=== PATIENT | female | born 1975 | race Caucasian/White ===

== ENCOUNTER 2024-08-01 13:55 | Emergency (ER) | payer MEDICAID, SELFPAY ==
[2024-08-01 13:57] VITALS: BP 125/79; PULSE 104; RESP 18; TEMP 36.2; O2SAT 98; BMI 21.8
[2024-08-01 14:18] LABS: Absolute Lymphocyte Count 2.65 X10^3/uL (0.83-4.51); Absolute Neutrophil Count 4.5 X10^3/uL (2.0-7.7); Basophil# 0.05 X10^3/uL; Basophil% 0.6 % (0-1); Eosinophil# 0.08 X10^3/uL; Hematocrit 35.5 % (37-47); Hemoglobin 13.1 g/dL (12.0-15.0); Lymphocyte # 2.65 X10^3/ul (0.83-4.51); Lymphocyte % 34.3 % (19-41); Mean Corp Hgb Conc 36.9 g/dL (32-36); Mean Corpuscular Volume 92.2 fL (81-99); Mean Platelet Vol. 9.3 fl (6.2-12.0); Monocyte# 0.45 X10^3/uL; Monocyte% 5.8 % (0-10); NRBC Flagged by Analyzer 0 % (0-5); Neutrophil # 4.45 X10^3/uL (2.7-7.7); Neutrophil % 57.7 % (47-70); Platelet Count 298 K/mm3 (150-450); RBC Distribution Width CV 12.7 % (11.6-14.6); Red Blood Count 3.85 M/mm3 (4.2-5.4); White Blood Count 7.7 K/mm3 (4.4-11.0)
[2024-08-01 14:23] LABS: Mucous, Urine 0 SEEN /hpf (<or=2+); Red Blood Cells-Urine 0 SEEN /hpf (0-5); White Blood Cells 0 SEEN /hpf (0-5)
[2024-08-01 14:25] LABS: Internal QC Validated? YES +Cl - CLEAR BKGD
[2024-08-01 14:26] LABS: Pregnancy, Serum, hCG Quali. NEGATIVE Negative; Record Kit Lot#, Serum Preg. 947241
[2024-08-01 14:30] LABS: Color, Urine Yellow (Yellow); Glucose, Dipstick 1000 mg/dl (Normal); Ketone-Dipstick Negative (Negative); Leukocyte Esterase-Dipstick Negative /ul (Negative); Nitrite-Dipstick Negative (Negative); Occult Blood-Urine Negative /ul (Negative); Protein-Dipstick 30 mg/dl (Negative); Specific Gravity, Urine 1.015 (1.002-1.030); Urine Bilirubin Dipstick Negative (Negative); Urine Clarity Sl. Cloudy (Clear); Urine Urobilinogen Normal (Normal); Urine pH 6.5 (5.0 - 8.0)
[2024-08-01 14:43] LABS: ALB/GLOB Ratio 1.4 RATIO (0.9-2.4); AST(SGOT) 152 U/L (<=31); Alanine Aminotransfer ALT/SGPT 163 U/L (<=34); Albumin, Serum 4.2 g/dL (3.5-5.0); Alkaline Phosphatase 84 U/L (35-104); Anion Gap 12 (5-15); BUN 10 mg/dL (4-19); BUN/Creat Ratio 8.3 RATIO (10-20); Calcium,Total 8.6 mg/dL (7.6-11.0); Carbon Dioxide 25.9 mmol/L (21.0-32.0); Chloride 92 mmol/L (98-108); Creatinine, Serum 1.18 mg/dL (0.70-1.20); EST Glomerular Filtration Rate 57 (>60); Estimated Creatinine Clearance 53.03 ml/min (50-250); Globulin 2.9 g/dL (2.2-4.2); Glucose 430 mg/dL (70-99); Potassium 3.9 mmol/L (3.3-5.1); Protein, Total 7.1 g/dL (5.9-8.4); Sodium Level 130 mmol/L (133-145); Total Bilirubin 0.57 mg/dL (0.00-1.30)
--- NOTE | 2024-08-01 14:53 | EKG12_ITS ---
Test Reason : Blood Pressure : */* mmHG Vent. Rate : 78 BPM Atrial Rate : 78 BPM P-R Int : 196 ms QRS Dur : 86 ms QT Int : 388 ms P-R-T Axes : 64 144 80 degrees QTcB Int : 442 ms Normal sinus rhythm Right axis deviation Pulmonary disease pattern Septal infarct , age undetermined Abnormal ECG Confirmed by NANCY WHITFIELD, IRVING ([id number]), field map editor BETSEY BANKS ([id number]) on 08/06/2024 6:16:48 AM Referred By: TB Confirmed By: IRVING CRUZ MD
--- NOTE | 2024-08-01 14:53 | CT_ITS ---
PROCEDURE: ABDOMEN/PELVIS W IV CONT ONLY 08/01/2024 REASON FOR EXAM: LEFT FLANK PAIN TECHNIQUE: Abdomen and pelvis CT with intravenous contrast. Coronal and Sagittal reconstruction series were provided. CONTRAST: Isovue 370 VOLUME: 75 mL. One or more dose reduction techniques were used (e.g., Automated exposure control, adjustment of the mA and/or kV according to patient size, use of iterative reconstruction technique. RADIATION DOSE SUMMARY: CTDlvol: 13.30+ 9.42 mGy DLP: 467.97 mGycm COMPARISON: None. FINDINGS: The peripheral soft tissues are unremarkable. No acute osseous abnormalities. Normal caliber abdominal aorta. No suspicious lymphadenopathy. Hepatic cysts. The gallbladder, pancreas, spleen, and adrenals are unremarkable. Right kidney 19 mm and 13 mm hypodense indeterminate lesions. Left kidney upper pole simple cyst. Additional subcentimeter lesions which are too small to characterize. Concentric urinary bladder wall thickening. Normal caliber large and small bowel. Long segment sigmoid colon wall thickening suspicious for colitis. CT/Abdomen/Pelvis W IV Cont ONLY IMPRESSION: Long segment sigmoid colon wall thickening suspicious for colitis. Concentric urinary bladder wall thickening which may be due to detrusor muscle hypertrophy or cystitis. Correlate with urinalysis. Indeterminate right kidney lesions. Further characterization with nonemergent renal mass protocol CT or MRI is recommended. Reading Location: [place] [address]
--- NOTE | 2024-08-01 14:54 | EX.ED.DYSGE1 ---
HPI History of Present Illness Chief Complaint: Flank Pain Narrative Narrative: Patient is a 49-year-old female with past medical history of type 1 diabetes, thyroid cancer status post radiation therapy who presents to the emergency department with chief complaint of left flank pain. Patient states I have had kidney issues since being a child. Patient denies any history of kidney stones or any trauma to her back. States that she is been urinating normally for herself and having normal bowel movements. Patient states that she has been trying cranberry juice, [id number] medications and her pain was not improving therefore she came here for further evaluation management. She states that her pain is a 10 out of 10. Patient states that she does smoke but denies any history of IV drug use denies alcohol use. [facility] Medical History (Updated 08/01/24 @ 17:[address] Naseem Pandya, ) Diabetes Home Medications ?Medication ?Instructions ?Recorded ?Last Taken ?Type cephalexin 500 mg capsule 500 mg PO BID #10 caps 08/01/24 Unknown Rx dicyclomine 20 mg tablet 20 mg PO TID #20 tabs 08/01/24 Unknown Rx ondansetron 4 mg disintegrating 4 mg PO Q6H PRN nausea and 08/01/24 Unknown Rx tablet vomiting #20 tabs Allergy/AdvReac Type Severity Reaction Status Date / Time diphenhydramine (From Allergy Anaphylaxis Verified 08/01/24 13:57 Benadryl) Opioids - Morphine Analogues Allergy Rash Verified 08/01/24 13:57 Social History (Updated 08/01/24 @ 15:15 by Theresa Gilliam) current occupational status: unemployed Smoking Status: Current some day smoker tobacco type: cigarettes ROS ROS ED ROS Narrative Constitutional: Denies any fevers, chills, headaches, lightness, dizziness Cardiovascular: Denies chest pain or palpitations Respiratory: Denies cough or wheezing shortness of breath Abdomen: Denies abdominal pain nausea vomiting diarrhea : Denies painful urination or hematuria Neurological: Denies any numbness, wheeze, tingling Musculoskeletal: Complains of left-sided back pain as noted above Skin: Denies any new rashes or lesions EXAM Physical Exam Narrative Exam Narrative: General: Patient was lying in bed rest comfortably did not appear to be acute distress Head: Atraumatic, normocephalic Eyes: PERRL bilaterally, EOMI bilateral, no conjunctival injection noted Neck: Soft and supple, trach midline Cardiovascular: Patient tachycardic with regular rhythm Respiratory: Clear to auscultation bilaterally Abdomen: Soft, nondistended, nontender to palpation Musculoskeletal: Left CVA tenderness on exam, nontender to palpation midline of thoracic lumbar spine Extremities: +5/5 strength noted in the bilateral upper and lower extremities, radial pulses +2/4 in the bilateral extremities Neurological: Patient following commands knew that she was at [facility] year is 2024 Skin: Warm, dry, intact no rashes or lesions noted Const Vital Signs: 08/01/24 13:57 08/01/24 15:55 Temperature 97.2 F L Temperature Source Temporal Pulse Rate 104 H 90 Respiratory Rate 18 13 Blood Pressure 125/79 H Blood Pressure Mean 94 Pulse Ox 98 100 Oxygen Delivery Method Room Air MDM MDM MDM Narrative Medical decision making narrative: Patient is a 49-year-old female who presents to the emergency department chief complaint of left flank pain. On the differential diagnosis includes but not limited to UTI, pyelonephritis, ureterolithiasis, AAA. Once workup is obtained reviewed she will be reevaluated. Patient be given IV fluids, Zofran and Toradol. Patient CBC reviewed showed no evidence leukocytosis white blood count normal at 7.7, hemoglobin 13.1, platelet count normal at 298. Patient sodium is 130, potassium normal 3.9, creatinine normal at 1.18. Patient's anion gap normal at 12, glucose was elevated to 430 will give her subcutaneous insulin prior to discharge, AST and ALT were 152 and 163 respectively she was advised to have her blood work repeated in the outpatient setting. Patient's is negative, glucose in her urine was 1000, protein at 30 no ketones noted, negative nitrites negative leukocyte esterase, no white cells seen 2+ bacteria she is not having urinary symptoms therefore this sent for culture. Patient CT abdomen pelvis with IV contrast reviewed showed a long segment sigmoid colon wall thickening which may be secondary to colitis. Concentric urinary bladder wall thickening which may be due to detrusor muscle hypertrophy or cystitis. correlate with urinalysis. Given 2+ bacteria in her urine with CT findings will give a gram of Rocephin and place her on Keflex. She was advised to follow-up on urine culture. Indeterminate right kidney lesion further characterization with nonemergent renal mass protocol CT or MRI recommended. Patient is given a hard copy of this results was advised to take this to her doctor that she will be referred to. Discussed results with the patient she is feeling better she would like to go home at this point time. She states that she is on diabetic medications and she has plenty of these medications and has been taking them as prescribed. She was advised to continue these medications as prescribed. She is encouraged return with worsening symptoms or concerns. All question concerns answered she was discharged home in stable condition. She was requesting a dose pain medication before she left therefore she will be given another 15 mg of Toradol. Lab Data Labs: Laboratory Results - last 24 hr 08/01/24 08/01/24 14:04 14:15 WBC 7.7 RBC 3.85 L Hgb 13.1 Hct 35.5 L MCV 92.2 MCH 34.0 H MCHC 36.9 H RDW Std Deviation 42.0 RDW Coeff of Puma 12.7 Plt Count 298 MPV 9.3 Immature Gran % (Auto) 0.600 Neut % (Auto) 57.7 Lymph % (Auto) 34.3 Swain % (Auto) 5.8 Eos % (Auto) 1.0 Baso % (Auto) 0.6 Absolute Neuts (auto) 4.5 Absolute Lymphs (auto) 2.65 Nucleated RBC % 0 Sodium 130 L Potassium 3.9 Chloride 92 L Carbon Dioxide 25.9 Anion Gap 12 BUN 10 Creatinine 1.18 Estim Creat Clear Calc 53.03 Est GFR (MDRD) Non-Af 57 L BUN/Creatinine Ratio 8.3 L Glucose 430 H Calcium 8.6 Total Bilirubin 0.57 AST 152 H ALT 163 H Alkaline Phosphatase 84 Total Protein 7.1 Albumin 4.2 Globulin 2.9 Albumin/Globulin Ratio 1.4 Lipase 40 Serum , Qual NEGATIVE Urine Color Yellow Urine Clarity Sl. Cloudy Urine pH 6.5 Ur Specific [employer] 1.015 Urine Protein 30 H Urine Glucose (UA) 1000 H Urine Ketones Negative Urine Occult Blood Negative Urine Nitrite Negative Urine Bilirubin Negative Urine Urobilinogen Normal Ur Leukocyte Esterase Negative Urine RBC 0 SEEN Urine WBC 0 SEEN Ur Squamous Epith Cells 0-5 SEEN Urine Bacteria 2+ Urine Mucus 0 SEEN Radiography Diagnostic Testing: Clinical Impression(s) from Imaging Studies Abdomen/Pelvis CT 08/01/24 14:53 IMPRESSION: Long segment sigmoid colon wall thickening suspicious for colitis. Concentric urinary bladder wall thickening which may be due to detrusor muscle hypertrophy or cystitis. Correlate with urinalysis. Indeterminate right kidney lesions. Further characterization with nonemergent renal mass protocol CT or MRI is recommended. Reading Location: [id number] Discharge Plan Triage Chief Complaint: Flank Pain ED Provider: Naseem Pandya Dx/Rx/DC Orders Clinical Impression: Colitis, Left flank pain Prescriptions: New cephalexin 500 mg capsule 500 mg PO BID Qty: 10 0RF dicyclomine 20 mg tablet 20 mg PO TID Qty: 20 0RF ondansetron 4 mg tablet,disintegrating 4 mg PO Q6H PRN (Reason: nausea and vomiting) Qty: 20 0RF Referrals: Ca Erazo, ECONOMIC DEVELOPMENT MANAGER-C [[facility]] - Activity Restrictions/Additional Instructions: Follow-up on urine culture. Take antibiotics as prescribed and use other prescriptions as prescribed. Follow-up with the doctor they referred to. Return with worsening symptoms or other concerns. You were given a hard copy of your CT abdomen pelvis results and need to show this to your doctor so they can order the appropriate testing for the incidental finding of the kidney lesion on the right side. Print Language: Uruguayan Disposition Disposition: Home, Self Care
[2024-08-01 15:12] LABS: Bacteria 2+ /hpf (None Seen); Squamous Epithelial Cells - UA 0-5 SEEN /hpf (5-10)
[2024-08-01] MEDS: 0.9% Normal Saline (1000mL) 1,000 ML 999 ML IV (15:13)
[2024-08-01] MEDS: Ketorolac 15 MG/ML Vial IV ×2 (15:13→18:18)
[2024-08-01] MEDS: Ondansetron 4 MG/2 ML Vial IV (15:13)
[2024-08-01 15:30] LABS: Lipase 40 U/L (13-75)
[2024-08-01 15:55] VITALS: PULSE 90; RESP 13; O2SAT 100
[2024-08-01 18:00] VITALS: BP 129/83; PULSE 73; RESP 18; O2SAT 99
[2024-08-01] MEDS: Insulin Lispro 100 UNIT/ML INSULN.PEN 15 UNIT SC (18:19)
[2024-08-01] MEDS: Ceftriaxone 1 GM/50 ML BAG IV (18:19)
[2024-08-01 19:06] VITALS: BP 126/78; PULSE 73; RESP 17; TEMP 36.6; O2SAT 99
== END 2024-08-01 19:06 | disposition home or self-care (01) ==
PROVIDERS: Emergency Provider Emergency Medicine; Visit Provider Emergency Medicine
DX: K52.9 Noninfective gastroenteritis and colitis, unspecified (principal); E10.9 Type 1 diabetes mellitus without complications; Z79.899 Other long term (current) drug therapy; Z85.850 Personal history of malignant neoplasm of thyroid; Z92.3 Personal history of irradiation; F17.210 Nicotine dependence, cigarettes, uncomplicated
CPT/HCPCS: 74177; 80053; 81001; 83690; 84703; 85025; 87086; 87088; 93005; 96361; 96365; 96375; 96376; 99282; Q9967; A4216; J2405

== ENCOUNTER 2024-11-25 03:10 | Emergency (ER) | payer MEDICAID, SELFPAY ==
--- OUTSIDE RECORDS SUMMARY | 2024-08-12 10:18 | XMS RPT_ITS ---
Author Name Auto Generated Organization [facility] Care Team Providers Care Director Translational Name Role Phone OLIVIA SAENZ Attending Unavailable PHYSICIAN, NONE Primary Care Unavailable CAIT LAZO MD Attending Unavailable PROBLEMS DATE TYPE CONDITION / CODE ATTENDING STATUS [facility] 08/12/2024 Final Diagnosis (Discharge) Left lower quadrant pain / R10.32(ICD-10) CAIT LAZO MD [facility] 08/12/2024 Final Diagnosis (Discharge) Generalized abdominal pain / R10.84(ICD-10) CAIT LAZO MD [facility] 08/12/2024 Final Diagnosis (Discharge) Low back pain, unspecified / M54.50(ICD-10) CAIT LAZO MD [facility] 08/12/2024 Final Diagnosis (Discharge) Underdosing of insulin and oral hypoglycemic [antidiabetic] drugs, initial encounter / T38.3X6A(ICD-10) CAIT LAZO MD [facility] 08/12/2024 Final Diagnosis (Discharge) Patient's intentional underdosing of medication regimen for other reason / Z91.128(ICD-10) CAIT LAZO MD [facility] 08/01/2024 Active Abdominal pain, unspecified abdominal location / R10.9(ICD-10) OLIVIA SAENZ Active [facility] PROCEDURES No Procedure Records Found RESULTS CT ABD/PELVIS W/ IV CONTRAST ONLY Observed: 08/12/2024 11:39 AM Status: F Source: [facility] ORIGINAL EXAMINATION: CT OF THE ABDOMEN AND PELVIS WITH CONTRAST 08/12/2024 12:22 pm TECHNIQUE: CT of the abdomen and pelvis was performed with the administration of intravenous contrast. Multiplanar reformatted images are provided for review. Automated exposure control, iterative reconstruction, and/or weight based adjustment of the mA/kV was utilized to reduce the radiation dose to as low as reasonably achievable. COMPARISON: None. HISTORY: ORDERING SYSTEM PROVIDED HISTORY: Reason for Exam: Abdominal pain, acute, nonlocalized FINDINGS: Lower Chest: Lung bases are clear. No active alveolar, interstitial or pericardial disease evident. Organs: Scattered lipomatous lesions which may reflect angiomyolipomas are seen in the right and left hepatic lobes of the liver. No additional hepatic mass is seen. There is no intrahepatic bile duct dilatation. There is appropriate appearance to the spleen, pancreas, gallbladder, adrenal glands. Left kidney demonstrates a 1.9 cm cyst in the upper pole region. Smaller cortical cysts are seen in the midpole. The midpole right kidney demonstrates a heterogeneously enhancing complex solid-appearing mass containing components of fat measuring 3.0 x 2.9 x 2 cm. This does not reflect a simple cyst. A 2nd smaller exophytic lesion measuring 1.7 cm is seen also in the midpole the right kidney. There are similar smaller subcentimeter lesions in the lower pole right kidney. GI/Bowel: There is no obstruction of the stomach, small bowel or large bowel. Mild constipation affects the colon specially in the descending and sigmoid regions. There is no high-grade bowel obstruction. The appendix is unremarkable. Pelvis: Uterus is surgically absent. Urinary bladder is significantly distended. Bladder mucosa is slightly thickened throughout which may reflect underlying inflammatory or infectious etiology. There is no inguinal mass or lymphadenopathy. Peritoneum/Retroperitoneum: Abdominal aorta and inferior vena cava are appropriate in size and enhancement. There is no aneurysm seen. No pathologic lymphadenopathy apparent within the peritoneal or retroperitoneal spaces. There is no free air or ascites. Bones/Soft Tissues: Skeletal elements appear intact and age-appropriate. There is no infiltrative bony lesion or soft tissue mass. No anasarca is seen. IMPRESSION: 1. 3.0 x 2.9 x 2 cm heterogeneously enhancing solid mass in the midpole the right kidney. This does not reflect a simple cyst. This is concerning for renal cell carcinoma. Recommend Urology consultation and/or follow-up with MRI of the kidneys.. 2. Several other smaller lesions in the right kidney are too small to characterize. 3. Scattered lipomatous lesions in the liver may reflect angiomyolipomas. 4. Mild constipation. 5. Significant distention of the urinary bladder with mild mucosal thickening. This may reflect underlying inflammatory or infectious etiology. 6. No acute intra-abdominal or pelvic process. Interpreted by: Vimal Godoy DO Preliminary Report By: Vimal Godoy DO Electronically signed By Vimal Godoy DO Dictated Date: 08/12/2024 12:35:34 PM Prelim Date: 08/12/2024 12:49:05 PM Sign Date: 08/12/2024 12:49:05 PM Ordering Provider: CAIT LAZO CBC Collected: 11:16 AM Status: F Source: [facility] TYPE CODE TESTS RESULT OUT OF RANGE REFERENCE UNITS LAB WBC(LOINC) WBC 7.0 4.5-10.8 10 3/mcL LAB RBCCT(LOINC) RBC 4.27 4.10-5.30 10 6/mcL LAB HGB(LOINC) Hgb 14.4 12.0-16.0 G/dL LAB HCT(LOINC) Hct 41.1 34.0-46.0 % LAB MCV(LOINC) MCV 96.4 80.0-99.0 fL LAB MCH(LOINC) MCH 33.7 High 27.0-33.0 pg LAB MCHC(LOINC) MCHC 35.0 32.0-36.0 G/dL LAB RDW(LOINC) RDW 13.6 11.5-15.5 % LAB PLT(LOINC) Platelet 320 150-450 10 3/mcL LAB MPV(LOINC) MPV 8.0 6.6-10.5 fL Performed By: #### MDW, GFR, LIP, CBC, ANEU, CMP, ADIFF #### [address] [address] .AUTO DIFF Collected: 08/12/2024 11:16 AM Status: F Source: [facility] TYPE CODE TESTS RESULT OUT OF RANGE REFERENCE UNITS LAB LETICIA(LOINC) Neutrophil % 68.7 50.0-75.0 % LAB LYM(LOINC) Lymphocyte % 23.6 20.0-40.0 % LAB MON(LOINC) Monocyte % 6.2 2.0-13.0 % LAB EO(LOINC) Eosinophil % 0.6 0.0-6.0 % LAB BAS(LOINC) Basophil % 0.9 0.0-2.5 % LAB ABLYM(LOINC) Lymphocyte, Absolute 1.6 0.9-4.3 10 3/mcL LAB ILEANA(LOINC) Monocyte, Absolute 0.4 0.1-1.4 10 3/mcL LAB AEOS(LOINC) Eosinophil, Absolute 0.0 0.0-0.7 10 3/mcL LAB ABAS(LOINC) Basophil, Absolute 0.1 0.0-0.3 10 3/mcL Performed By: #### MDW, GFR, LIP, CBC, ANEU, CMP, ADIFF #### [place] [id number] .NEUABS Collected: 11:16 AM Status: F Source: [facility] TYPE CODE TESTS RESULT OUT OF RANGE REFERENCE UNITS LAB ANEU(LOINC) Neutrophil, Absolute 4.8 2.3-8.1 10 3/mcL Performed By: #### MDW, GFR, LIP, CBC, ANEU, CMP, ADIFF #### [place] [id number] .MDW Collected: 08/12/2024 11:16 AM Status: F Source: [facility] TYPE CODE TESTS RESULT OUT OF RANGE REFERENCE UNITS LAB MDW(LOINC) Monocyte Distribution Width 19.99 0.00-20.00 Result Comment: For ED adult patients suspected of sepsis, MDW<=20.0 does not rule out sepsis or risk of sepsis Performed By: #### MDW, GFR, LIP, CBC, ANEU, CMP, ADIFF #### [address] [address] LIP Collected: 11:16 AM Status: F Source: [facility] TYPE CODE TESTS RESULT OUT OF RANGE REFERENCE UNITS LAB LIP(LOINC) Lipase Level 61 16-77 U/L Performed By: #### MDW, GFR, LIP, CBC, ANEU, CMP, ADIFF #### [place] [id number] CMP Collected: 11:16 AM Status: F Source: [facility] TYPE CODE TESTS RESULT OUT OF RANGE REFERENCE UNITS LAB GLU(LOINC) Glucose Level 482 Abnormal Alert 70-105 mg/dL LAB NA(LOINC) Sodium Level 132 Low 136-145 mmol/L LAB K(LOINC) Potassium Level 4.5 3.5-5.1 mmol/L LAB CL(LOINC) Chloride 98 98-107 mmol/L LAB CO2(LOINC) CO2 29 22-29 mmol/L LAB EBAL(LOINC) Electrolyte Balance 5.0 4.0-15.0 mEq/L LAB BUN(LOINC) BUN 24 High 7-18 mg/dL LAB CRE(LOINC) Creatinine Lvl (s) 0.99 High 0.51-0.95 mg/dL LAB BC(LOINC) BUN/Creatinine Ratio 24 7-27 ratio LAB CA(LOINC) Calcium Lvl 9.5 8.4-10.2 mg/dL LAB PROT(LOINC) Total Protein 8.3 High 6.4-8.2 G/dL LAB ALB(LOINC) Albumin Level 4.0 3.5-5.0 G/dL LAB GLB(LOINC) Globulin 4.3 2.7-4.4 G/dL LAB AG(LOINC) A/G Ratio 0.9 Low 1.1-2.5 ratio LAB BILT(LOINC) Bili Total 0.6 0.2-1.0 mg/dL Result Comment: Use of this assay is not recommended for patients undergoing treatment with eltrombopag due to the potential for falsely elevated results. LAB AP(LOINC) Alk Phos 82 40-135 U/L LAB AST(LOINC) AST/SGOT 84 High 10-40 U/L LAB ALT(LOINC) ALT/SGPT 160 High 14-59 U/L Performed By: #### MDW, GFR, LIP, CBC, ANEU, CMP, ADIFF #### [place] [address] [place], [place] [address] .GFR Collected: 11:16 AM Status: F Source: [facility] TYPE CODE TESTS RESULT OUT OF RANGE REFERENCE UNITS LAB eGFR(LOINC) Estimated Glomerular Filtration Rate 71 ml/min/1. 73sqm Result Comment: Stages of Chronic Kidney Disease (CKD) Stage Description eGFR(ml/min/1.73 sq.m.) CKD 1 Normal kidney function or >=90 normal kindney function with possible kidney damage (ex. Proteinuria) CKD 2 Kidney damage with mild loss 60-89 of kidney function CKD 3a Mild to moderate loss of kidney 45-59 function CKD 3b Moderate to severe loss of 30-44 of kindey function CKD 4 Severe loss of kidney function 15-29 CKD 5 Kidney failure <15 Note: (go live 2024) the eGFR calculation was updated to the 2020 CKD-EPI creatinine equation without a race factor to calculate the eGFR results. Performed By: #### MDW, GFR, LIP, CBC, ANEU, CMP, ADIFF #### [address] [address] UA Collected: 08/12/2024 11:16 AM Status: F Source: [facility] TYPE CODE TESTS RESULT OUT OF RANGE REFERENCE UNITS LAB SPCUA(LOINC) UA Specimen Type Clean Catch LAB CLRUA(LOINC) UA Color Yellow LAB APPUA(LOINC) UA Appear Slightly Cloudy Abnormal Clear LAB SGUA(LOINC) UA Spec Grav 1.015 1.015-1.025 LAB GLUA(LOINC) UA Glucose >=1000 Abnormal Negative mg/dL LAB BILUA(LOINC) UA Bili Negative Negative LAB KETUA(LOINC) UA Ketones Negative Negative mg/dL LAB BLDUA(LOINC) UA Blood Negative Negative LAB PHUA(LOINC) UA pH 7.5 5.0 - 8.0 LAB PROUA(LOINC) UA Protein Negative Negative mg/dL LAB UROUA(LOINC) UA Urobilinogen 0.2 0.2-1.0 E.U ./dL LAB NITUA(LOINC) UA Nitrite Negative Negative LAB LEUUA(LOINC) UA Leuk Est Negative Negative Performed By: #### UAMIC, UA #### [address] [address] UAMIC Collected: 08/12/2024 11:16 AM Status: F Source: [facility] TYPE CODE TESTS RESULT OUT OF RANGE REFERENCE UNITS LAB RBCUA(LOINC) UA RBC 0-2 0-2 /hpf LAB WBCUA([facility]) UA WBC 0-2 0-5 /hpf LAB EPIUA([facility]) UA Squam Epithelial 3-5 0-20 /hpf LAB AMOUA([facility]) UA Amorphus 4+ /hpf Performed By: #### UAMIC, UA #### [place] [id number] [place], [place] [address] PROGRESS Observed: 08/01/2024 12:31 PM Status: COMPLETED Source: [facility] HNO ID: [id number] Author: OLIVIA SAENZ APRN.MAINTENANCE SPECIALIST Service: ? Author Type: Nurse Practitioner Type: Progress Notes Filed: 08/01/2024 12:34 Note Text: Patient presents with severe right sided pain, with abdominal pain that is 15/10. No dysuria or frequency. Concerned of an acute abdomen triaged to ER. Patient declines transport, family member to take her. CNOV Observed: 08/01/2024 12:30 PM Status: COMPLETED Source: [facility] Office Visit (WSTR) CRYSTAL VERONICA ([id number]) 1975 F Date Time Provider Department 08/01/24 12:30 PM OLIVIA SAENZ WSTR During your visit today, we recorded the following information about you: Olivia Saenz APRN.MAINTENANCE SPECIALIST 08/01/2024 12:34 PM Signed Patient presents with severe right sided pain, with abdominal pain that is 15/10. No dysuria or frequency. Concerned of an acute abdomen triaged to ER. Patient declines transport, family member to take her. Allergies As of Date: 08/01/2024 Noted Allergy Reaction BENADRYL (DIPHENHYDRAMINE HCL) 07/23/2004 DUST 07/23/2004 RAGWEED 07/23/2004 Date Reviewed: Never Reviewed Primary Visit Diagnosis:Abdominal pain, unspecified abdominal location [R10.9] Problem List As Of Date 08/01/2024 Noted Resolved TUBEROUS SCLEROSIS [Q85.1] 11/18/2004 HEMANGIOMA SKIN [D18.01] 11/18/2004 Encounter Status:Closed by OLIVIA SAENZ on 08/01/24 ALLERGIES DATE TYPE / CODE NAME / CODE REACTION SEVERITY SOURCE 07/23/2004 DRUG INGREDI/56630850 3(SNOMED CT) DIPHENHYDRAMINE HCL [facility] 07/23/2004 Environ/58466107 6(SNOMED CT) DUST [facility] 07/23/2004 Environ/[id number] 6(SNOMED CT) RAGWEED [facility] ENCOUNTERS ADMIT/DISCHARGE ACCOUNT NUMBER ADMITTING ENCOUNTER CLASS LOCATION SOURCE 08/12/2024/ 5 [id number] [facility] MAINBuilding: [facility] 08/01/2024/ 5 [id number] Ambulatory [facility] PAYERS ENCOUNTER GUARANTOR PAYER SUBSCRIBER SOURCE 08/12/2024 CRYSTAL BOBB: [place], [place] [address]Tyc: () [facility] Number: [id number] e Date:[id number] Name:GERSON [facility] [address]MJ: CRYSTAL BOBB: [id number] [place], [place] [address]Hrs: (HP) () [facility] 08/01/2024 Primary [facility] Number: [id number] e Date:[id number] Name:Jarvis SANTACRUZ: [id number] [place], [place] [id number] [place] [address]
[2024-11-25 03:11] VITALS: BP 130/98; PULSE 79; RESP 18; TEMP 36.5; O2SAT 99; BMI 21.1
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
[2024-11-25] MEDS: fentaNYL 100 MCG/2 ML Ampul 50 MCG IM (03:56)
[2024-11-25 05:17] LABS: Mucous, Urine 0 SEEN /hpf (<or=2+)
[2024-11-25 05:21] LABS: Color, Urine Yellow (Yellow); Glucose, Dipstick 1000 mg/dl (Normal); Ketone-Dipstick Negative (Negative); Leukocyte Esterase-Dipstick Negative /ul (Negative); Nitrite-Dipstick Negative (Negative); Occult Blood-Urine 150 /ul (Negative); Protein-Dipstick 15 mg/dl (Negative); Specific Gravity, Urine 1.010 (1.002-1.030); Urine Bilirubin Dipstick Negative (Negative)
[2024-11-25 05:37] LABS: Red Blood Cells-Urine 10-25 SEEN /hpf (0-5); Squamous Epithelial Cells - UA 0-5 SEEN /hpf (5-10)
[2024-11-25] MEDS: Orphenadrine 60 MG/2 ML Ampul IM (05:49)
== END 2024-11-25 05:54 | disposition home or self-care (01) ==
PROVIDERS: Emergency Provider Emergency Medicine; PCP Internal Medicine Endocrinology, Diabetes & Metabolism; Visit Provider Emergency Medicine
DX: M54.50 Low back pain, unspecified (principal); E10.65 Type 1 diabetes mellitus with hyperglycemia; Z79.4 Long term (current) use of insulin; R35.0 Frequency of micturition; E78.5 Hyperlipidemia, unspecified; G89.29 Other chronic pain
CPT/HCPCS: 81001; 82962; 96372; 96374; 99284